=== PATIENT | male | born 1945 | race Caucasian/White ===

== ENCOUNTER 2019-04-13 03:32 | Emergency (ER) | payer MEDICARE, BC ==
--- NOTE | 2019-04-13 03:46 | ED ---
Palpitations / Dysrhythmia - HPI Summary HPI Summary: This patient is a 73 year old male presenting to [facility] with a chief complaint of an intermittent palpitations at 3 hours ago. The patient denies any chest pain or Cardiac Dz Hx. He states by the time he got into the car a couple hours after onset the palpitations stopped. He said he had similar symptoms 3 years ago. The patient denies SOB and diaphoresis. - History of Current Complaint Hx Obtained From: Patient Onset/Duration: Lasting Hours Character: Fast, Irregular, Skipped Beats Aggravating: Rest - Allergy/Home Medications Allergies/Adverse Reactions: Allergies Allergy/AdvReac Type Severity Reaction Status Date / Time No Known Allergies Allergy Verified 04/13/19 03:42 PMH/Surg Hx/FS Hx/Imm Hx Endocrine/Hematology History: Denies: Hx Anemia Cardiovascular History: Denies: Hx Coronary Artery Disease Infectious Disease History: No Infectious Disease History: Denies: Traveled Outside the [place] in Last 30 Days - Family History Known Family History: Negative: Hypertension - Social History Alcohol Use: Daily Alcohol Amount: wine with dinner Substance Use Type: Reports: Marijuana Substance Use Comment - Amount & Last Used: occasionally Smoking Status (MU): Former Smoker Review of Systems Negative: Skin Diaphoresis Positive: Palpitations. Negative: Chest Pain Negative: Shortness Of Breath All Other Systems Reviewed And Are Negative: Yes Physical Exam - Summary Physical Exam Summary: Appearance: Well-appearing, Well-nourished, lying in bed comfortably Skin: Warm, dry, no obvious rash Eyes: sclera anicteric, no conjunctival pallor ENT: mucous membranes moist, pharynx appears normal Neck: Supple, nontender Respiratory: Clear to auscultation, no signs of respiratory distress Cardiovascular: Normal S1, S2. No murmurs. Normal distal pulses in tibial and radial bilaterally. Abdomen: Soft, nontender, normal active bowel sounds present Musculoskeletal: Normal, Strength/ROM Intact Neurological: A&Ox3, awake and alert, mentation is normal, speech is fluent and appropriate Psychiatric: affect is normal, does not appear anxious or depressed Triage Information Reviewed: Yes Vital Signs On Initial Exam: Initial Vitals Temp Pulse Resp BP Pulse Ox 97.1 F 60 16 139/107 96 04/13/19 03:35 04/13/19 03:35 04/13/19 03:35 04/13/19 03:35 04/13/19 03:35 Vital Signs Reviewed: Yes Diagnostics - Vital Signs Vital Signs Temp Pulse Resp BP Pulse Ox 04/13/19 03:35 97.1 F 60 16 139/107 96 - Laboratory Result Diagrams: 04/13/19 04:34 04/13/19 04:34 Lab Statement: Any lab studies that have been ordered have been reviewed, and results considered in the medical decision making process. - EKG 0342 Cardiac Rate: Bradycardia EKG Rhythm: Sinus Bradycardia - 59 BPM Summary of EKG Findings: Sinus bradycardia at 59 BPM, P waves, QRS complex, and T waves are within normal limits, T waves and intervals are normal, no ischemic changes. Course/Dx - Course Course Of Treatment: This patient is a 73 year old male presenting to [facility] with a chief complaint of an intermittent palpitations at 0100. EKG and labs were unremarkable for cardiovascular problems. A plan for discharge was discussed with the patient and he was agreeable with this plan. - Diagnoses Provider Diagnoses: Palpitations Discharge - Sign-Out/Discharge Documenting (check all that apply): Patient Departure - Discharge Patient Received Moderate/Deep Sedation with Procedure: No - Discharge Plan Condition: Good Disposition: HOME Patient Education Materials: Heart Palpitations (ED) Referrals: Max Yeboah DO [Primary Care Provider] - If Needed - Billing Disposition and Condition Condition: GOOD Disposition: Home - Attestation Statements Document Initiated by Wilton: Yes Documenting Scribe: German Ayala Provider For Whom Wilton is Documenting (Include Credential): Ej Alfonso MD Scribe Attestation: German Morales scribed for Ej Alfonso MD on 04/14/19 at 0236. Scribe Documentation Reviewed: Yes Provider Attestation: The documentation as recorded by the German jorgensen accurately reflects the service I personally performed and the decisions made by me, Ej Alfonso MD Status of Scribjalen Document: Viewed
[2019-04-13 04:41] LABS: ABS Eosinophils 0.1 10^3/ul (0-0.6); ABS Lymphocytes 1.5 10^3/ul (1.0-4.8); ABS Monocytes 0.5 10^3/ul (0-0.8); ABS Neutrophils 3.5 10^3/ul (1.5-7.7); Eosinophil % 2.3 %; Hematocrit 45 % (42-52); Hemoglobin 15.3 g/dL (14.0-18.0); Lymphocyte % 27.1 %; Mean Corpuscular HGB Conc 34 g/dL (31-36); Mean Corpuscular Hemoglobin 31 pg (27-31); Mean Corpuscular Volume 92 fL (80-94); Nucleated Red Blood Cells % 0.1; Platelet Count 193 10^3/uL (150-450); Red Blood Count 4.86 10^6 /uL (4.18-5.48); Red Cell Distribution Width 13 % (10.5-15); White Blood Count 5.7 10^3/uL (3.5-10.8)
[2019-04-13 04:55] LABS: BUN/Creatinine Ratio 19.3 (8-20); Calcium 8.8 mg/dL (8.6-10.3); EGFR African American 80.7 (>60); EGFR Non-African American 66.7 (>60); Potassium 4.4 mmol/L (3.5-5.0)
[2019-04-13 05:20] LABS: TSH (Thyroid Stimulating Horm) 3.27 mcIU/mL (0.34-5.60)
[2019-04-13 05:32] VITALS: BP 137/85
== END 2019-04-13 05:31 | disposition home or self-care (01) ==
LOC: ED 03:32
DX: R00.2 Palpitations (principal); R00.1 Bradycardia, unspecified; Z87.891 Personal history of nicotine dependence
CPT/HCPCS: 36415; 80048; 84443; 85025; 93005; 99283